=== PATIENT | male | born 1980 | race Caucasian/White ===

== ENCOUNTER 2017-07-22 17:59 | Emergency (ER) | payer SELFPAY ==
[~2017-07-22] VITALS: Ht 193 cm; Wt 81.5 kg
[~2017-07-22 17:59] MED LIST: BACT800T5 PO; CLIN150 PO; HIBI4LIQ TOPICAL
[2017-07-22 18:03] VITALS: BP 139/79; PULSE 104; RESP 24; TEMP 98.2; O2SAT 92
--- NOTE | 2017-07-22 18:12 | PD ---
HPI Chief Complaint: Respiratory Symptoms Time Seen by Provider: 18:12 Travel History International Travel<30 days: No Contact w/Intl Traveler<30days: No Traveled to known affect area: No History of Present Illness HPI 37-year-old male came to the emergency room with history of shortness of breath for past 1 day this progressively worsening. Patient has history of asthma. He currently does not have a primary care doctor and does not have a job. He says his last asthma exacerbation was 2 years ago and since then he has been okay. However he continues to smoke. Patient has had history of hospitalization and also ICU hospitalization about 20 years ago. He seemed to be in moderate distress. He says he has chest tightness. No history of fever or chills. Vital signs in triage initially she had a oxygen saturation of 92% on room air which seemed to have improved. PFSH Past Medical History Narrative Medical List of his past medical, surgical, social and family history is reviewed from the nursing note. 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 Reported Meds & Prescriptions Reported Meds & Active Scripts Active Prednisone 20 Mg Tab 20 Mg PO BID 5 Days Ventolin Hfa 18 GM Inh (Albuterol Sulfate) 90 Mcg/Act Aer 2 Puff INH Q4-6H PRN Hibiclens Topical (Chlorhexidine Gluconate) 4% Liq 1 Applic TOPICAL ONCE Cleocin (Clindamycin HCl) 150 Mg Cap 150 Mg PO Q6H 7 Days Bactrim DS (Sulfamethoxazole-Trimethoprim) 800-160 Mg Tab 1 Tab PO BID Narrative Medication List of his home medications reviewed from the nursing note. Review of Systems Except as stated in HPI: all other systems reviewed are Neg Physical Exam Narrative GENERAL: Awake, alert, disheveled, moderate distress SKIN: Warm and diaphoretic HEAD: Atraumatic. Normocephalic. EYES: Pupils equal and round. No scleral icterus. No injection or drainage. ENT: No nasal bleeding or discharge. Mucous membranes pink and moist. NECK: Trachea midline. No JVD. CARDIOVASCULAR: Regular rate and rhythm. No murmur appreciated. RESPIRATORY: Diminished air entry bilaterally with end expiratory wheeze and prolonged expiration GASTROINTESTINAL: Abdomen soft, non-tender, nondistended. Hepatic and splenic margins not palpable. MUSCULOSKELETAL: No obvious deformities. No clubbing. No cyanosis. No edema. NEUROLOGICAL: Awake and alert. No obvious cranial nerve deficits. Motor grossly within normal limits. Normal speech. PSYCHIATRIC: Appropriate mood and affect; insight and judgment normal. Data Data Last Documented VS Vital Signs Date Time Temp Pulse Resp B/P (MAP) Pulse Ox O2 Delivery O2 Flow Rate FiO2 07/22/17 18:13 18 95 Room Air 07/22/17 18:03 98.2 104 139/79 (99) Orders Orders Iv Access Insert/Monitor (07/22/17 18:21) Ecg Monitoring (07/22/17 18:21) Oximetry (07/22/17 18:21) Oxygen Administration (07/22/17 18:21) Sodium Chloride 0.9% Flush (Ns Flush) (07/22/17 18:30) Albuterol-Ipratropium Neb (Duoneb Neb) (07/22/17 18:30) Prednisone (Deltasone) (07/22/17 18:30) Albuterol Neb (Albuterol Neb) (07/22/17 19:15) MDM Medical Decision Making Medical Screen Exam Complete: Yes Emergency Medical Condition: Yes Medical Record Reviewed: Yes Differential Diagnosis Acute asthma exacerbation, status asthmaticus, bronchitis Narrative Course 8:29 PM patient was initially given 3 duo nebs [id number]. He was also given by mouth prednisone. I went back and reassessed him shortly after the DuoNeb were done and he seemed to have better air entry but the wheezing was still persistent. I have ordered 2 more albuterol nebulizer which she is waiting to receive. I'm comfortable to discharge him home. Patient will be discharged home with prescription for an inhaler as well as steroids. Procedures EKG Prior to Arrival: No Diagnosis Primary Impression: Acute asthma exacerbation Qualified Codes: J45.21 - Mild intermittent asthma with (acute) exacerbation Additional Impression: Encounter for smoking cessation counseling Referrals: Primary Care Physician Additional Instructions: He should quit smoking since it will continue to worsen your asthma and cause COPD. Take the medications as per the prescription direction. The albuterol inhaler initially should be 2 puffs every 4 hours till the symptoms get better. Return to the ER if the condition worsens or any other new concerns. Med/Other Pt SpecificInfo: Prescription(s) given Scripts Prednisone (Prednisone) 20 Mg Tab 20 MG PO BID for 5 Days, TAB 0 Refills Prov: Lianne Newton MD 07/22/17 Albuterol 18 GM Inh (Ventolin Hfa 18 GM Inh) 90 Mcg/Act Aer 2 PUFF INH Q4-6H Y for SHORTNESS OF BREATH, #1 INHALER 0 Refills Prov: Lianne Newton MD 07/22/17 Disposition: 01 DISCHARGE HOME Condition: Stable Lianne Newton MD Jul 22, 2017 18:12
[2017-07-22] MEDS ORDERED: SODIUM CHLORIDE 0.9% FLUSH 10 ML FLUSH IVF PRN (18:30)
[2017-07-22] MEDS ORDERED: predniSONE 20 MG TAB PO ONE (18:30)
[2017-07-22] MEDS: RESP: ALBUTEROL 2.5 MG/IPRATROPIUM 0.5 MG NEB (SCH) INH ×3 (18:32→18:41)
[2017-07-22] MEDS ORDERED: PRED20 PO (20:32)
[2017-07-22] MEDS ORDERED: VENTAER INH (20:32)
[2017-07-22] MEDS: RESP: ALBUTEROL 2.5 MG/3 ML NEB (SCH) INH (20:49)
== END 2017-07-22 22:08 | disposition home or self-care (01) ==
LOC: NEPD 17:59
DX: J45.901 Unspecified asthma with (acute) exacerbation (principal); Z72.0 Tobacco use
CPT/HCPCS: 94640; 94664; 99285; J7512; J7613

== ENCOUNTER 2017-09-13 08:27 | Emergency (ER) | payer OTHER ==
[~2017-09-13] VITALS: Ht 177.8 cm; Wt 85.0 kg
[~2017-09-13 08:27] MED LIST changes: +PRED20 PO; +VENTAER INH
[2017-09-13 08:35] VITALS: BP 125/81; PULSE 84; RESP 18; TEMP 97.5; O2SAT 99
[2017-09-13 08:45] VITALS: RESP 18; O2SAT 97
[2017-09-13] MEDS ORDERED: SODIUM CHLOR 0.9% 1000 ML INJ 1,000 ML IV ONE (09:00)
[2017-09-13] MEDS ORDERED: SODIUM CHLORIDE 0.9% FLUSH 10 ML FLUSH IVF PRN (09:00)
--- NOTE | 2017-09-13 09:01 | PD ---
HPI Chief Complaint: Alcohol/Drug Intoxication Time Seen by Provider: 08:54 Travel History International Travel<30 days: No Contact w/Intl Traveler<30days: No Traveled to known affect area: No History of Present Illness HPI Patient is a 37-year-old male brought to the emergency by police officers under [employer]. Patient was found intoxicated, unable to ambulate. Patient reports that he is an alcoholic, reports that he had one too many drinks tonight. Patient denies suicidal or homicidal ideations, he does admit to drinking alcohol daily. Patient with no complaints at this time. Denies use of drugs, reports that he is 'just an alcoholic". 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) Reported Meds & Prescriptions Reported Meds & Active Scripts Active Review of Systems General / Constitutional: No: Fever Eyes: No: Visual changes HENT: No: Headaches Cardiovascular: No: Chest Pain or Discomfort Respiratory: No: Shortness of Breath Gastrointestinal: No: Abdominal Pain Genitourinary: No: Dysuria Musculoskeletal: No: Pain Skin: No Rash Neurologic: No: Weakness Psychiatric: Positive: Substance Abuse (alcohol abuse), No: Depression, Suicidal Ideations, Homicidal Ideation Endocrine: No: Polydipsia Hematologic/Lymphatic: No: Easy Bruising Physical Exam Narrative GENERAL: NAD SKIN: Focused skin assessment warm/dry. HEAD: Atraumatic. Normocephalic. EYES: Pupils equal and round. No scleral icterus. No injection or drainage. ENT: No nasal bleeding or discharge. Mucous membranes pink and moist. NECK: Trachea midline. No JVD. CARDIOVASCULAR: Regular rate and rhythm. No murmur appreciated. RESPIRATORY: No accessory muscle use. Clear to auscultation. Breath sounds equal bilaterally. GASTROINTESTINAL: Abdomen soft, non-tender, nondistended. Hepatic and splenic margins not palpable. MUSCULOSKELETAL: No obvious deformities. No clubbing. No cyanosis. No edema. NEUROLOGICAL: Awake and alert. No obvious cranial nerve deficits. Motor grossly within normal limits. Normal speech. PSYCHIATRIC: Flat mood and affect; patient intoxicated Data Data Last Documented VS Vital Signs Date Time Temp Pulse Resp B/P (MAP) Pulse Ox O2 Delivery O2 Flow Rate FiO2 09/13/17 16:58 85 20 129/75 (93) 98 Room Air 09/13/17 08:35 97.5 Orders Orders Iv Access Insert/Monitor (09/13/17 08:46) Ecg Monitoring (09/13/17 08:46) Sodium Chloride 0.9% Flush (Ns Flush) (09/13/17 09:00) Drug Screen, Random Urine (09/13/17 08:46) Alcohol (Ethanol) (09/13/17 08:46) Sodium Chlor 0.9% 1000 Ml Inj (Ns 1000 M (09/13/17 09:00) Lorazepam Inj (Ativan Inj) (09/13/17 09:30) Lorazepam Inj (Ativan Inj) (09/13/17 09:24) Haloperidol Inj (Haldol Inj) (09/13/17 09:45) Diphenhydramine Inj (Benadryl Inj) (09/13/17 10:00) Oximetry (09/13/17 10:50) Labs Laboratory Tests Test 09/13/17 08:40 Ethyl Alcohol Level 341 MG/DL MDM Medical Decision Making Medical Screen Exam Complete: Yes Emergency Medical Condition: Yes Medical Record Reviewed: Yes Interpretation(s) Vital Signs Date Time Temp Pulse Resp B/P (MAP) Pulse Ox O2 Delivery O2 Flow Rate FiO2 09/13/17 08:40 100 Room Air 09/13/17 08:35 97.5 84 18 125/81 (96) 99 Room Air Differential Diagnosis Differential includes alcohol abuse/intoxication Narrative Course 37 -year-old male who presents to emergency room after he was placed in her [place] act by police officers. Patient was found to be intoxicated, reports that he is an alcoholic, reports that he is also homeless and drank too much today. Patient denies si/hi. Patient here to "sleep it off." Patient with no complaints at this time. Patient is happy and jolly and laughing at bedside. Patient belligerent and attempting to elope. He is clearly intoxicated at this time and will require medication for sedation for his safety Patient awake and alert x 3, ambulating in ER with normal gait. Denies si/hi. Patient safe to be discharged to home at this time. Critical Care Narrative Aggregate critical care time was 30 minutes. Time to perform other separately billable procedures was not included in the critical care time. My time did not include minutes spent treating any other patients simultaneously or on activities that did not directly contribute to the patient's treatment. The services I provided to this patient were to treat and/or prevent clinically significant deterioration that could result in: , decompensation, deterioration I provided critical care services requiring my management, as noted below: Chart data review, documentation time, medication orders and management, vital sign assessments/reviewing monitor data, ordering and reviewing lab tests, ordering and interpreting/reviewing x-rays and diagnostic studies, care of the patient and discussion of the patient with the admitting physicians. Diagnosis Primary Impression: Alcohol abuse Additional Impression: Alcohol intoxication Patient Instructions: General Instructions Additional Instructions: Please drink alcohol responsibly Disposition: 01 DISCHARGE HOME Condition: Stable Celia Ann DO Sep 13, 2017 09:00
[2017-09-13] MEDS ORDERED: LORazepam 2 MG/ML VIAL ONE (09:24)
[2017-09-13] MEDS ORDERED: LORazepam 2 MG/ML VIAL IV PUSH ONE (09:30)
[2017-09-13] MEDS ORDERED: HALOPERIDOL LACTATE 5 MG/ML AMP IM ONE (09:45)
[2017-09-13] MEDS ORDERED: diphenhydrAMINE HCL 50 MG/ML VIAL IV PUSH ONE (10:00)
[2017-09-13 12:17] VITALS: BP 121/76; PULSE 88; RESP 16; O2SAT 96
[2017-09-13 16:58] VITALS: BP 129/75; PULSE 85; RESP 20; O2SAT 98
== END 2017-09-13 17:15 | disposition home or self-care (01) ==
LOC: NEPC 08:27
DX: F10.229 Alcohol dependence with intoxication, unspecified (principal); Y90.8 Blood alcohol level of 240 mg/100 ml or more
CPT/HCPCS: 80307; 96361; 96372; 96374; 99291; J1630; J2060; J7030